=== PATIENT | male | born 1945 | race Caucasian/White ===

== ENCOUNTER 2020-11-26 19:43 | Emergency (ER) | payer OTHER ==
[~2020-11-26] VITALS: Ht 167.6 cm; Wt 79.8 kg
[2020-11-26 19:55] VITALS: BP 149/67
[2020-11-26] MEDS ORDERED: LIDOCAINE MPF 1% 10 MG/ML VIAL INJ ONE (21:10)
[2020-11-26] MEDS ORDERED: HYDROcodone/APAP 5/325 MG 1 TAB TAB PO ONE (21:10)
[2020-11-26 21:36] LABS: BASOPHILS % (AUTO) 0.7 % (0.0-2.0); EOSINOPHILS # (AUTO) 0.4 K/uL (0-0.4); EOSINOPHILS % (AUTO) 5.8 % (0.0-4.0); HEMATOCRIT 36.3 % (36-52); HEMOGLOBIN 12.2 g/dL (12.0-18.0); LYMPHOCYTES # (AUTO) 1.2 K/uL (2.0-11.5); LYMPHOCYTES % (AUTO) 18.5 % (20.5-51.1); MEAN CORPUSCULAR HEMOGLOBIN 32 pg (27-31); MEAN CORPUSCULAR HGB CONC 34 g/dL (33-37); MEAN CORPUSCULAR VOLUME 94.3 fL (80-94); MONOCYTES # (AUTO) 0.7 K/uL (0.8-1.0); MONOCYTES % (AUTO) 9.9 % (1.7-9.3); NEUTROPHILS # (AUTO) 4.4 K/uL (1.8-7.7); NEUTROPHILS % (AUTO) 65.1 % (42.2-75.2); PLATELET COUNT (AUTO) 227 K/uL (140-450); RED BLOOD CELL COUNT(AUTO) 3.85 MIL/uL (4.20-6.10); RED CELL DISTRIBUTION WIDTH 13.7 % (11.6-13.7); WHITE BLOOD COUNT (AUTO) 6.7 K/uL (4.8-10.8)
[2020-11-26 21:54] LABS: PROTHROMBIN TIME 9.2 secs (10.8-13.4)
[2020-11-26 21:55] LABS: ALBUMIN 3.6 g/dL (3.4-5.0); ANION GAP 13.2 (8-16); ASPARTATE AMINOTRANSFERASE 14 U/L (15-37); CARBON DIOXIDE 26.9 mmol/L (21-32); CHLORIDE 103 mmol/L (98-107); CREATININE 1.5 mg/dL (0.6-1.3); GLUCOSE 192 mg/dL (74-106); POTASSIUM 5.1 mmol/L (3.5-5.1); SODIUM SERUM 138 mmol/L (136-145); TOTAL BILIRUBIN 0.2 mg/dL (0.0-1.0); UREA NITROGEN, BLOOD 37 mg/dL (7-18)
[2020-11-27] MEDS ORDERED: LID5T TP (00:55)
[2020-11-27] MEDS ORDERED: GABA-636 PO (00:55)
[2020-11-27] MEDS ORDERED: HYDR-5080 PO (00:55)
[2020-11-27 01:12] VITALS: BP 182/59
== END 2020-11-27 01:12 | disposition home or self-care (01) ==
LOC: MED 19:43
DX: M54.12 Radiculopathy, cervical region (principal); E11.9 Type 2 diabetes mellitus without complications; Z79.899 Other long term (current) drug therapy
CPT/HCPCS: 36415; 70450; 70498; 71045; 72125; 73206; 80053; 84484; 85025; 85610; 85730; 93005; 93971; 99285; J2001

== ENCOUNTER 2023-04-26 12:11 | Emergency (ER) | payer OTHER ==
[~2023-04-26] VITALS: Ht 172.7 cm; Wt 86.2 kg
[2023-04-26 12:11] VITALS: BP 156/70; PULSE 67; RESP 15; TEMP 97.6; O2SAT 95
[~2023-04-26 12:11] MED LIST: GABA-636 PO; HYDR-5080 PO; LID5T TP
[2023-04-26] MEDS ORDERED: BACITRACIN OINT 500 UNITS/GM PKT TP ONE (12:30)
[2023-04-26 13:33] VITALS: O2SAT 95
== END 2023-04-26 14:27 ==
LOC: MED 12:11
DX: L72.9 Follicular cyst of the skin and subcutaneous tissue, unspecified (principal); E11.9 Type 2 diabetes mellitus without complications; I10 Essential (primary) hypertension; D64.9 Anemia, unspecified; N40.0 Benign prostatic hyperplasia without lower urinary tract symptoms; Z89.519 Acquired absence of unspecified leg below knee; Z79.899 Other long term (current) drug therapy
CPT/HCPCS: 99282

== ENCOUNTER 2023-12-03 19:23 | Emergency (ER) | payer OTHER ==
[~2023-12-03] VITALS: Ht 182.9 cm; Wt 83.5 kg
[2023-12-03 19:33] VITALS: BP 178/78; PULSE 80; RESP 17; TEMP 98.1; O2SAT 97
[2023-12-03 19:47] VITALS: BP 158/73; PULSE 80; RESP 17
[2023-12-03 19:48] VITALS: O2SAT 97
[2023-12-03] MEDS ORDERED: AMOX-1230 PO (21:23)
== END 2023-12-03 23:10 | disposition home or self-care (01) ==
LOC: MED 19:23
DX: L03.115 Cellulitis of right lower limb (principal); E11.9 Type 2 diabetes mellitus without complications; Z79.4 Long term (current) use of insulin; Z79.899 Other long term (current) drug therapy
CPT/HCPCS: 73630; 99283; Q0092